=== PATIENT | female | born 1950 | race Caucasian/White ===

== ENCOUNTER 2022-07-10 11:36 | Emergency (ER) | payer OTHER, SELFPAY ==
[2022-07-10 11:37] VITALS: BP 116/88; PULSE 83; RESP 16; TEMP 37; O2SAT 97
--- NOTE | 2022-07-10 11:51 | CT_ITS ---
STUDY: CT FACIAL BONES WITH CONTRAST REASON FOR EXAM: Female, 72 years old. Facial swelling AROUND LIPS AND CHEEK X 1 WEEK RADIATION DOSAGE (If Supplied By Facility): CTDIvol = ( 29.38 ) mGy, DLP = ( 518.07 ) mGycm TECHNIQUE: The patient was scanned in a multi detector CT scanner. Transaxial imaging was performed following the intravenous administration of IV 100mL Isovue-300. Sagittal and coronal images were reconstructed. Individualized dose optimization techniques were used for this CT. COMPARISON: None. FINDINGS: There is diffuse subcutaneous soft tissue swelling overlying the left maxillary region extending into the lateral aspect of the maxillary region. Within it, there is a focal area of decreased attenuation measuring 2.3 cm x 0.6 cm. This may represent a focal area of possible abscess formation. No underlying bony abnormality is seen. Normal orbital wade and orbital contents. Normal nasal bones and anterior nasal spine. Normal facial bones. There is no demonstrated fracture. Normal visualized paranasal sinuses. CT/Sinus/Facial Bone WITH Contras IMPRESSION: Diffuse subcutaneous soft tissue swelling overlying the left maxillary region extending to the lateral aspect of the maxillary region on the left side. Within it, is a 2.3 cm x 0.6 cm fluid collection. This may represent early abscess. The bony structures are unremarkable. Electronically Signed: Michael Kasper MD at 13:01 EDT ,
[2022-07-10 12:23] LABS: Anion Gap 7 (5-15); BUN 18 mg/dL (7-18); BUN/Creat Ratio 18.8 RATIO (10-20); Calcium,Total 9.5 mg/dL (8.5-10.1); Chloride 105 mmol/L (98-107); Creatinine, Serum 0.96 mg/dL (0.55-1.02); EST Glomerular Filtration Rate 61 mL/min (>60); Est Glom Filt Rate - Afr Amer 74 mL/min (>60); Glucose 133 mg/dL (74-106); Potassium 4.1 mmol/L (3.5-5.1); Sodium Level 140 mmol/L (136-145)
[2022-07-10 12:26] LABS: Absolute Lymphocyte Count 0.64 X10^3/uL (0.83-4.51); Absolute Neutrophil Count 11.8 X10^3/uL (2.0-7.7); Basophil# 0.05 X10^3/uL; Basophil% 0.4 % (0-1); Eosinophil# 0.04 X10^3/uL; Eosinophils% 0.3 % (0-5); Hematocrit 40.5 % (37-47); Hemoglobin 13.2 g/dL (12.0-15.0); Lymphocyte # 0.64 X10^3/ul (0.83-4.51); Lymphocyte % 4.8 % (19-41); Mean Corp Hgb Conc 32.6 g/dL (32-36); Mean Corpuscular Hgb 29.9 pg (27.0-32.0); Mean Corpuscular Volume 91.6 fL (81-99); Mean Platelet Vol. 9.4 fl (6.2-12.0); Monocyte# 0.65 X10^3/uL; Monocyte% 4.9 % (0-10); NRBC Flagged by Analyzer 0 % (0-5); Neutrophil % 88.9 % (47-70); Platelet Count 298 K/mm3 (150-450); RBC Distribution Width CV 13.3 % (11.6-14.6); RBC Distribution Width SD 45.3 fl (35.1-43.9); Red Blood Count 4.42 M/mm3 (4.2-5.4); White Blood Count 13.3 K/mm3 (4.4-11.0)
--- NOTE | 2022-07-10 12:34 | EX.ED.DYSGE1 ---
HPI History of Present Illness Chief Complaint: Edema Narrative Narrative: 72-year-old female presenting with family out of concern for left-sided facial pain that is in the left upper lip and she describes it is radiating into her cheek and down into her mandible on the left. Denies trauma. This has been ongoing for a week and 1/2 to 2 weeks. Patient was taken to dermatology today and they stated that this was not a dermatology issue and referred her to the emergency room to get an ENT consult. Patient has any trouble swallowing or breathing. She does have some slight facial swelling on the left. No fevers. [facility] Medical History (Updated 07/10/22 @ 13:06 by Omi Donovan) Emphysema lung HTN (hypertension) Home Medications sulfamethoxazole 800 mg-trimethoprim 160 mg tablet (Bactrim DS) 1 tab PO BID #20 tabs 07/10/22 [Rx Last Taken Unknown] Allergy/AdvReac Type Severity Reaction Status Date / Time No Known Allergies Allergy Verified 07/10/22 12:09 Social History Smoking Status: Former smoker ROS ROS ED Constitutional Constitutional ED: Denies chills or fever(s) Eyes Eyes: Denies change in vision or diplopia ENT ENT ED: Reports other Details: Upper left facial swelling and lip pain ; Denies rhinorrhea or sore throat Cardiovascular Cardiovascular: Denies chest pain or palpitations Respiratory/Chest Respiratory/Chest: Denies cough or dyspnea Gastrointestinal Gastrointestinal: Denies abdominal pain or constipation Genitourinary Genitourinary ED: Denies dysuria or hematuria Musculoskeletal Musculoskeletal: Denies arthralgias Integumentary Denies abscess or Abrasions Neurologic Neurologic: Denies headache(s) Psychiatric Psychiatric: Denies anxiety or depression EXAM Physical Exam Const Vital Signs: 07/10/22 11:37 Temperature 98.6 F Temperature Source Temporal Pulse Rate 83 Respiratory Rate 16 Blood Pressure 116/88 H Blood Pressure Mean 97 Pulse Ox 97 Oxygen Delivery Method Room Air Positive well nourished General Appearance ED: NAD; Negative for pallor HEENT Nose: external nose normal and nares normal Mouth ED: No dysphonia, No drooling, Yes lip abnormal and No trismus Mouth: No dysphonia, No drooling, lip abnormal swelling and No trismus Teeth and Gingiva: edentulous Eyes PERRL Neck no lymphadenopathy Resp normal respiratory effort Cardio regular rate and regular rhythm Neuro oriented x3 and CN's II-XII intact bilaterally Sensorium / Orientation: alert Psych mental status grossly normal Skin no rashes or lesions noted General Skin Exam: Negative for jaundice or pallor MDM MDM MDM Narrative Medical decision making narrative: Patient with facial swelling on the left. She claims he is pain in the cheek although there is not appreciable swelling here. No trouble swallowing or breathing. CBC was obtained to assess white blood cell count, hemoglobin, platelets, differential. CBC slightly elevated white blood cell count of 13.3 with a slight left shift. Renal function electrolytes unremarkable. Glucose 133. CT facial/sinus indicates an area of subcutaneous edema overlying the maxillary sinus as well as a 2.3 cm x 0.6 cm fluid collection. This was discussed with Dr. Villareal. He recommended starting Bactrim which would cover for MRSA. He was amenable to following up with the patient in office. Patient does live about 15 minutes away and she is traveling with her daughter because they thought that dermatology would be helping them today. She is not sure if she is going to come back this way for evaluation. She is given a prescription for Bactrim with the first dose in the ED. I did have a CD made with her imaging on it in case she needs follow-up closer to home. Discharged home in stable condition. Impression: 1. Facial cellulitis 2. Facial abscess Lab Data Attestation: I reviewed the patient's lab results. Labs: Laboratory Results - last 24 hr 07/10/22 07/10/22 12:00 12:00 WBC 13.3 H RBC 4.42 Hgb 13.2 Hct 40.5 MCV 91.6 MCH 29.9 MCHC 32.6 RDW Std Deviation 45.3 H RDW Coeff of Stephan 13.3 Plt Count 298 MPV 9.4 Immature Gran % (Auto) 0.700 Neut % (Auto) 88.9 H Lymph % (Auto) 4.8 L Orange % (Auto) 4.9 Eos % (Auto) 0.3 Baso % (Auto) 0.4 Absolute Neuts (auto) 11.8 H Absolute Lymphs (auto) 0.64 L Nucleated RBC % 0 Sodium 140 Potassium 4.1 Chloride 105 Carbon Dioxide 28.0 Anion Gap 7 BUN 18 Creatinine 0.96 Est GFR (MDRD) Af Amer 74 Est GFR (MDRD) Non-Af 61 BUN/Creatinine Ratio 18.8 Glucose 133 H Calcium 9.5 Radiography Diagnostic Testing: Clinical Impression(s) from Imaging Studies Facial/Sinus 07/10/22 11:51 IMPRESSION: Diffuse subcutaneous soft tissue swelling overlying the left maxillary region extending to the lateral aspect of the maxillary region on the left side. Within it, is a 2.3 cm x 0.6 cm fluid collection. This may represent early abscess. The bony structures are unremarkable. Electronically Signed: Michael Kasper MD at 13:01 EDT , Discharge Plan Triage Chief Complaint: Edema ED Provider: Markell Curiel Dx/Rx/DC Orders Instructions: ED Cellulitis, Facial Prescriptions: New sulfamethoxazole-trimethoprim [Bactrim DS] 800-160 mg tablet 1 tab PO BID Qty: 20 0RF Primary Care Provider: Rafiq Rodriguez Referrals: Rafiq Rodriguez MD [Primary Care Provider] - Justin Villareal MD [Med Staff - Courtesy Staff] - 3-5 Days Disposition Disposition: Home, Self Care
[2022-07-10] MEDS: Smz/Tmp Ds Tablet 1 TABLET PO (13:25)
[2022-07-10 14:38] VITALS: RESP 18; O2SAT 99
== END 2022-07-10 14:39 | disposition home or self-care (01) ==
PROVIDERS: Emergency Provider Student in an Organized Health Care Education/Training Program; PCP Family Medicine; Referring Provider Student in an Organized Health Care Education/Training Program; Visit Provider Student in an Organized Health Care Education/Training Program
DX: L03.211 Cellulitis of face (principal); L02.01 Cutaneous abscess of face; Z87.891 Personal history of nicotine dependence
CPT/HCPCS: 70487; 80048; 85025; 99283; Q9967; A4216